=== PATIENT | female | born 1960 | race Caucasian/White ===

== ENCOUNTER → 2016-11-19 | Outpatient (CLI) | payer MEDICAID | LOC: FIMAGING 07:55 | PROVIDERS: ATTEND Family Medicine | DX: E04.2 Nontoxic multinodular goiter (principal); Z80.8 Family history of malignant neoplasm of other organs or systems ==

== ENCOUNTER → 2016-12-08 | Outpatient (CLI) | payer MEDICAID ==
[~2016-12-08] MED LIST: LIDOCAINE 1% 30 ML SDV ONE; NA BICARBONATE 50 MEQ/50 ML VIAL ONE
== END ==
LOC: FIMAGING 12:28
PROVIDERS: ATTEND Family Medicine
PROC: 0G9K3ZX Drainage of Thyroid Gland, Percutaneous Approach, Diagnostic (ICD-10-PCS; principal; 2016-12-08)
DX: E04.2 Nontoxic multinodular goiter (principal)

== ENCOUNTER → 2017-05-06 | Outpatient (CLI) | payer MEDICAID | LOC: FIMAGING 19:46 | PROVIDERS: ATTEND Family Medicine | DX: M48.02 Spinal stenosis, cervical region (principal); M46.92 Unspecified inflammatory spondylopathy, cervical region; M50.122 Cervical disc disorder at C5-C6 level with radiculopathy; M50.13 Cervical disc disorder with radiculopathy, cervicothoracic region ==

== ENCOUNTER 2018-01-06 08:21 | Day surgery (SDC) | payer MEDICAID ==
[2018-01-06] MEDS ORDERED: LR 1,000 ML IV ONE (08:39)
[2018-01-06] MEDS ORDERED: LIDOCAINE 1% 2 ML INJ ID PRN (08:39)
--- NOTE | 2018-01-06 09:32 | CPEKG ---
Heart Rate: 69 RR Interval: 870 P-R Interval: 212 QRSD Interval: 92 QT Interval: 412 QTC Interval: 442 P Jordan: 42 QRS Jordan: 22 T Wave Jordan: 44 EKG Severity - ABNORMAL ECG - EKG Impression: SINUS RHYTHM EKG Impression: FIRST DEGREE AV BLOCK Electronically Signed By: Mauricio Olivo 06-Jan-2018 11:01:26
--- NOTE | 2018-01-06 09:46 | PDGENHP ---
History & Physical Chief Complaint: hx of polyps History of Present Illness: 57 year old female presents for surveillance of colonic polyps Pertinent Past, Social, Family History: pMHx: morbid obesity, asthma, opiod use Relevant Physical Exam: Gen: AAO x 3. HEENT: anicteric. CV: RRR +s1s2. Lungs : CTAB. Abd: soft, nt, + bs Cardiorespiratory Assessment: ASA 3
[2018-01-06] MEDS ORDERED: INDOMETHACIN 50 MG SUPP PR PRN (09:50)
--- NOTE | 2018-01-06 09:55 | PDANEPAE ---
ANE Past Medical History - Cardiovascular History Hx Hypertension: Yes Hx Arrhythmias: No Hx Chest Pain: No Hx Coronary Artery / Peripheral Vascular Disease: No Hx CHF / Valvular Disease: No Hx Palpitations: No Cardiovascular History Comment: pcp monitors bp meds - Pulmonary History Hx COPD: No Hx Asthma/Reactive Airway Disease: Yes Hx Recent Upper Respiratory Infection: No Hx Oxygen in Use at Home: No Hx Sleep Apnea: Yes Sleep Apnea Screening Result - Last Documented: Positive Pulmonary History Comment: edie positive- uses cpap- instructed pt to bring DOS - Neurologic History Hx Cerebrovascular Accident: No Hx Seizures: No Hx Dementia: No Neurologic History Comment: low back pain. bilateral hands have numbness. cervical stenosis at c4. impaired gait- will use walking stick occ. DDD - Endocrine History Hx Diabetes: Yes Endocrine History Comment: type 2. hypothyroidism. 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 . uterine ablation 03/2014. kidney surgery 35 yrs ago. right pinky finger repair. bilateral carpal tunnel surgeries ANE Review of Systems Review of Systems: - Exercise capacity METS (RN): 3 METS ANE Patient History - Allergies Allergies/Adverse Reactions: lisinopril Allergy (Verified 01/05/18 14:31) bad cough Sulfa (Sulfonamide Antibiotics) Allergy (Verified 01/06/18 08:43) used sulfa drops- caused sclera to peel off eye - Home Medications Home Medications: Losartan Potassium [Cozaar 50 mg (RX)] 03/08/12 [Last Taken 01/05/18 09:00] Febuxostat [Uloric] 03/09/12 [Last Taken 01/05/18 09:00] Albuterol [Proventil Inhaler HFA (RX)] 09/13/14 [Last Taken 01/06/18 07:30] Herbals/Supplements -Info Only 09/13/14 [Last Taken 01/05/18 09:00] Ibuprofen [Motrin] 09/13/14 [Last Taken 01/05/18 09:00] Sertraline HCl [Zoloft] 09/13/14 [Last Taken 01/05/18 09:00] glipiZIDE [Glucotrol] 09/13/14 [Last Taken 01/05/18 19:00] metFORMIN HCL [Metformin HCl ER] 09/13/14 [Last Taken 01/05/18 19:00] Levothyroxine Sodium 01/05/18 [Last Taken 01/05/18 09:00] - NPO status NPO Since - Liquids (Date): 01/06/18 NPO Since - Liquids (Time): 00:45 NPO Since - Solids (Date): 01/05/18 NPO Since - Solids (Time): 21:00 - Smoking Hx Smoking Status: Former smoker - Family Anes Hx Family Hx Anesthesia Complications: none ANE Labs/Vital Signs - Labs Result Diagrams: 01/06/18 09:14 - Vital Signs Blood Pressure: 148/83 Heart Rate: 82 Respiratory Rate: 18 O2 Sat (%): 93 Height: 167.64 cm Weight: 122.47 kg ANE Physical Exam - Airway Neck exam: FROM, short neck Mallampati Score: Class 2 Mouth exam: normal dental/mouth exam, small mouth opening - Pulmonary Pulmonary: no respiratory distress, no rales or rhonchi, clear to auscultation, reduced air movement - Cardiovascular Cardiovascular: regular rate and rhythym, no murmur, rub, or gallop - ASA Status ASA Status: III ANE Anesthesia Plan Anesthesia Plan: MAC
[2018-01-06] MEDS ORDERED: NALOXONE HCL 0.4 MG/ML INJ IVP PRN (09:56)
[2018-01-06] MEDS ORDERED: PROPOFOL 200 MG/20 ML VIAL ONE ×3 (09:57→10:24)
[2018-01-06] MEDS ORDERED: LIDOCAINE 2% 5 ML SDV ONE (09:57)
[2018-01-06] MEDS ORDERED: NS 500 ML IV SCH (10:00)
--- NOTE | 2018-01-06 10:39 | POSTANESTH ---
Post Anesthetic Evaluation Cardiovascular Status: Normal, Stable, Similar to Pre-Op Cond Respiratory Status: Normal, Stable, Similar to Pre-op Cond. Level of Consciousness/Mental Status: Can Participate in Eval Pain Control: Adequate, Prn Tx Ordered Nausea/Vomiting Control: Adequate, Prn Tx Ordered Complications Possibly Related to Anesthesia: None Noted
--- NOTE | 2018-01-06 10:46 | GIREPORT ---
[facility] Surgical Services - Endoscopy Department Patient Name: Josefina Gentile Procedure Date: 01/06/2018 9:41 AM Patient Type: Outpatient Attending MD/ ER Physician: Rl Muhammad MD Procedure: Colonoscopy Indications: High risk colon cancer surveillance: Personal history of colonic polyps Patient Profile: 57 year old female with a history of polyps presents for surveillance colonosocpy. She has had a few episodes of gross blood in the stools suspected to be from hemorrhoids. Providers: Rl Muhammad MD Medicines: Monitored Anesthesia Care Complications: No immediate complications. Estimated blood loss: Minimal. Description of Procedure: After obtaining informed consent, the scope was passed under direct vis ion. Throughout the procedure, the patient's blood pressure, pulse, and oxyg en saturations were monitored continuously. The Colonoscope with irrigatio n channel was introduced through the anus and advanced to the cecum, identified by appendiceal orifice and ileocecal valve. The colonoscopy was performed without difficulty. The patient tolerated the procedure well. The quality of the bowel preparation was good. The ileocecal valve, appendi ceal orifice, and rectum were photographed. Findings: The perianal exam findings include non-thrombosed internal hemorrhoids. The entire examined colon appeared normal. Estimated Blood Loss: Estimated blood loss was minimal. Post Op Diagnosis: - Non-thrombosed internal hemorrhoids found on perianal exam. - The entire examined colon is normal. - No specimens collected. Recommendation: - Discharge patient to home (with escort). - Repeat colonoscopy in 5 years for surveillance. - Continue present medications. - Resume regular diet. - Thank you for allowing me to participate in the care of your patient. Attending Participation: I personally performed the entire procedure. Rl Muhammad MD Rl Muhammad MD 01/06/2018 10:45:56 AM This report has been signed electronicallyRl Muhammad MD Number of Addenda: 0 Note Initiated On: 01/06/2018 9:41 AM Total Procedure Duration Time 0 hours 19 minutes 52 seconds [email or web address]
[2018-01-06 11:37] VITALS: BP 116/65
== END 2018-01-06 11:44 | disposition home or self-care (01) ==
LOC: FSGY 08:21
PROVIDERS: ATTEND Internal Medicine Gastroenterology
PROC: 0DJD8ZZ Inspection of Lower Intestinal Tract, Via Natural or Artificial Opening Endoscopic (ICD-10-PCS; principal; 2018-01-06 09:00)
DX: Z12.11 Encounter for screening for malignant neoplasm of colon (principal); K64.8 Other hemorrhoids; I10 Essential (primary) hypertension; E11.9 Type 2 diabetes mellitus without complications; E03.9 Hypothyroidism, unspecified; E66.01 Morbid (severe) obesity due to excess calories; Z68.41 Body mass index [BMI] 40.0-44.9, adult; J45.909 Unspecified asthma, uncomplicated; G47.33 Obstructive sleep apnea (adult) (pediatric); F32.9 Major depressive disorder, single episode, unspecified; Z79.891 Long term (current) use of opiate analgesic; Z86.010 Personal history of colon polyps; Z87.891 Personal history of nicotine dependence; Z87.442 Personal history of urinary calculi; Z88.2 Allergy status to sulfonamides
CPT/HCPCS: J2704

== ENCOUNTER → 2018-03-11 | Outpatient (CLI) | payer MEDICAID | LOC: FIMAGING 09:13 | PROVIDERS: ATTEND Neurological Surgery | DX: M51.34 Other intervertebral disc degeneration, thoracic region (principal); M43.17 Spondylolisthesis, lumbosacral region; M41.26 Other idiopathic scoliosis, lumbar region ==

== ENCOUNTER → 2018-04-19 | Outpatient (CLI) | payer MEDICAID | LOC: FIMAGING 15:27 | PROVIDERS: ATTEND Physician Assistant | DX: M48.02 Spinal stenosis, cervical region (principal); M54.16 Radiculopathy, lumbar region; M51.37 Other intervertebral disc degeneration, lumbosacral region; M43.17 Spondylolisthesis, lumbosacral region; M51.35 Other intervertebral disc degeneration, thoracolumbar region; M51.36 Other intervertebral disc degeneration, lumbar region; N26.1 Atrophy of kidney (terminal) ==

== ENCOUNTER → 2018-04-23 | Outpatient (CLI) | payer MEDICAID | LOC: FIMAGING 16:33 | PROVIDERS: ATTEND Family Medicine | DX: E04.2 Nontoxic multinodular goiter (principal) ==